=== PATIENT | female | born 1950 | race Caucasian/White ===

== ENCOUNTER 2023-04-28 20:00 | Outpatient (OUT) | payer MEDICARE, OTHER, SELFPAY | END 2023-04-28 20:01 | disposition home or self-care (01) | LOC: SLEEP 20:00 | PROVIDERS: PCP Nurse Practitioner Family; Visit Provider Nurse Practitioner Family | DX: G47.33 Obstructive sleep apnea (adult) (pediatric) (principal) | CPT/HCPCS: 95811 ==